=== PATIENT | male | born 1960 | race Caucasian/White ===

== ENCOUNTER 2018-10-05 12:04 | Outpatient (CLI) | payer BC, SELFPAY ==
[2018-10-05 12:34] LABS: Bilirubin Negative (Negative); Blood Trace-intact (Negative); Clarity Clear; Glucose Negative (Negative); Ketones Negative (Negative); Leukocyte Esterase Negative (Negative); Nitrite Negative (Negative); Specific Gravity 1.025 (1.005-1.025); Urobilinogen 0.2 EU/dL (Up TO 0.2); pH 5.5 (5-8)
[2018-10-05 12:49] LABS: Bacteria Negative HPF (Negative); Casts Negative LPF (Negative); Crystals Negative HPF (Negative); Epithelial Cells Negative HPF (Negative); Mucus Trace (Negative); Other Cells Negative (Negative); RBC 0-2 (0-2); WBC 0-2 HPF (0-5)
[2018-10-05 12:50] LABS: C & S Indicated? No
[2018-10-05 13:06] LABS: CREATININE 0.93 mg/dL (0.70-1.30); Potassium 4.2 mmol/L (3.5-5.1)
== END 2018-10-05 12:24 ==
PROVIDERS: PCP General Practice; Visit Provider General Practice
DX: I10 Essential (primary) hypertension (principal)
CPT/HCPCS: 36415; 81003; 81015; 82565; 84132

== ENCOUNTER 2018-11-17 07:29 | Outpatient (CLI) | payer BC, SELFPAY ==
[2018-11-17 10:06] LABS: Anion Gap 10.2 mmol/L (3-11); BUN 19 mg/dL (7-18); CO2 27.8 mmol/L (21.0-32.0); CREATININE 0.97 mg/dL (0.70-1.30); Chloride 103 mmol/L (98-107); Cholesterol 143 mg/dL (50-200); Glucose 103 mg/dL (70-100); HDL Cholesterol 54 mg/dL (40-60); LDL CHOLESTEROL 76 mg/dL (<100); Potassium 4.1 mmol/L (3.5-5.1); Sodium 141 mmol/L (136-145); Triglyceride 74 mg/dL (30-150)
== END 2018-11-17 07:49 ==
PROVIDERS: PCP General Practice; Visit Provider General Practice
DX: I10 Essential (primary) hypertension (principal)
CPT/HCPCS: 36415; 80051; 80061; 82947; 83721; 84520; 82565

== ENCOUNTER 2018-12-24 09:51 | Outpatient (CLI) | payer BC, SELFPAY ==
--- NOTE | 2018-12-24 10:54 | DI.MRI_ITS ---
SYMPTOM/DIAGNOSIS: PARKINSONS DISEASE, G20 BRAIN MRI: MRI examination of the brain was performed according to the usual protocol. Ventricular system is normal in appearance. There are a few tiny areas of low signal seen on T 1 weighted imaging in cerebral peduncles bilaterally consistent with possible small infarctions. Small lacunar infarcts present on the right in the basal ganglia. No other significant signal abnormality identified in the brain. Diffusion weighted imaging shows no evidence of acute infarction. Susceptibility weighted imaging shows no evidence of intracranial hemorrhage. The orbital and temporal bone structures appear intact. Pituitary appears intact. Normal flow void in the [place] vasculature. 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 No other significant findings.
[2018-12-24 13:31] LABS: Folate 14.5 ng/mL (8.6-20.0); Vitamin B12 278 pg/mL (193-986)
[2018-12-25 17:29] LABS: Ceruloplasmin 24.1 mg/dL
[2018-12-25 18:09] LABS: Copper, Serum 1.02 mcg/mL (0.75-1.45)
[2018-12-28 15:40] LABS: Methylmalonic Acid 0.31 nmol/mL (<=0.40)
== END 2018-12-24 10:11 ==
PROVIDERS: PCP General Practice; Visit Provider Psychiatry & Neurology Neurology
DX: G20 Parkinson's disease (principal); G62.9 Polyneuropathy, unspecified; Z51.81 Encounter for therapeutic drug level monitoring; I63.9 Cerebral infarction, unspecified
CPT/HCPCS: 36415; 80186; 82390; 70551; 82525; 82607; 82746

== ENCOUNTER 2018-12-28 10:52 | Outpatient (CLI) | payer BC, SELFPAY ==
--- NOTE | 2018-12-28 11:10 | DI.RAD_ITS ---
SYMPTOM/DIAGNOSIS: RT KNEE PAIN, S/P TRAUMA RIGHT KNEE: The femoral tibial joint spaces are well maintained. There is mild periarticular spurring, greater at the lateral femoral tibial joint. There is some patellofemoral joint space narrowing and question of a joint effusion.
== END 2018-12-28 11:12 ==
PROVIDERS: PCP General Practice; Visit Provider General Practice
DX: M25.561 Pain in right knee (principal); M25.461 Effusion, right knee
CPT/HCPCS: 73562

== ENCOUNTER 2019-03-15 10:50 | Outpatient (CLI) | payer BC, SELFPAY ==
[2019-03-15 11:30] LABS: Hemoglobin A1C 5.6 % (4.5-6.2)
== END 2019-03-15 11:10 ==
PROVIDERS: PCP General Practice; Visit Provider General Practice
DX: R73.03 Prediabetes (principal)
CPT/HCPCS: 36415; 83036